=== PATIENT | female | born 1970 | race Caucasian/White ===

== ENCOUNTER 2017-07-31 12:00 | Outpatient (CLI) | payer MEDICAID ==
[~2017-07-31] VITALS: Ht 157.5 cm; Wt 113.4 kg
[2017-07-31] MEDS ORDERED: CARV3.122 PO (12:19)
[2017-07-31] MEDS ORDERED: FLUT15.88 NS (12:19)
[2017-07-31] MEDS ORDERED: GABA-488 PO (12:19)
[2017-07-31] MEDS ORDERED: PARO20TA5 PO (12:19)
[2017-07-31] MEDS ORDERED: IBUP-1780 PO (12:19)
[2017-07-31] MEDS ORDERED: PRAV20TA3 PO (12:19)
[2017-07-31] MEDS ORDERED: ASPI-983 PO (12:19)
[2017-07-31] MEDS ORDERED: TRAM50TA2 PO (12:19)
[2017-07-31] MEDS ORDERED: RT-ALBUINH IH (12:19)
[2017-07-31 12:20] VITALS: BP 147/87
== END 2017-07-31 12:20 | disposition home or self-care (01) ==
LOC: PREOP 12:00
PROVIDERS: ATTEND Orthopaedic Surgery
DX: Z01.818 Encounter for other preprocedural examination (principal); Z11.2 Encounter for screening for other bacterial diseases; S43.401A Unspecified sprain of right shoulder joint, initial encounter; X58.XXXA Exposure to other specified factors, initial encounter
CPT/HCPCS: 87081

== ENCOUNTER 2017-08-06 07:01 | Day surgery (SDC) | payer MEDICAID ==
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
[~2017-08-06] VITALS: Ht 157.5 cm; Wt 113.4 kg
[~2017-08-06 07:01] MED LIST: ASPI-983 PO; CARV3.122 PO; FLUT15.88 NS; GABA-488 PO; IBUP-1780 PO; PARO20TA5 PO; PRAV20TA3 PO; RT-ALBUINH IH; TRAM50TA2 PO
[2017-08-06 07:02] VITALS: BP 156/79
--- NOTE | 2017-08-06 07:31 | Progress Note-Pre Operative ---
Pre-Operative Progress Note H&P Reviewed The H&P was reviewed, patient examined and no changes noted. Date Seen by Provider: Aug 06, 2017 Time Seen by Provider: 07:21 Date H&P Reviewed: Aug 06, 2017 Time H&P Reviewed: 07:31 Pre-Operative Diagnosis: right shoulder SLAP tear and labral tear BEE GONZALEZ MD Aug 06, 2017 07:31
--- NOTE | 2017-08-06 07:32 | Progress Note-Post Operative ---
Post-Operative Progess Note Surgeon (s)/Fisher Line (s) Surgeon BEE GONZALEZ MD Fisher Line: Collin Abdalla Pre-Operative Diagnosis right shoulder SLAP tear and labral tear Post-Operative Diagnosis right shoulder SLAP tear and chondromalacia of the glenoid Procedure & Operative Findings Date of Procedure 08/06/17 Procedure Performed/Findings right shoulder arthroscopic biceps tenotomy and chondroplasty of the glenoid Anesthesia Type GETA Estimated Blood Loss Estimated blood loss (mL): minimal Specimens/Packing Specimens Removed none Packing: none BEE GONZALEZ MD Aug 06, 2017 07:32
--- OUTSIDE RECORDS SUMMARY | 2017-08-06 07:32 | XMS REPORT ---
Author NAHED Glynn [facility] eClinicalWorks Address Unknown Phone Unavailable Care Team Providers Care Cryolite Recovery Operator Name Role Phone NAHED CLEANING CP Unavailable Allergies No Known Allergies Problems Problem Type Condition Code Onset Dates Condition Status Problem Benign essential hypertension I10 Active Problem Obesity (BMI 30-39.9) E66.9 Active Problem Depression with anxiety F41.8 Active Problem Tobacco use Z72.0 Active Medications No Known Medications Results No Known Results Summary Purpose eClinicalWorks Submission
--- OUTSIDE RECORDS SUMMARY | 2017-08-06 07:32 | XMS REPORT ---
Author NAHED Glynn [facility] eClinicalWorks Address Unknown Phone Unavailable Care Team Providers Care Manager Of It Name Role Phone NAHED CLEANING CP Unavailable Allergies No Known Allergies Problems Problem Type Condition Code Onset Dates Condition Status Problem Benign essential hypertension I10 Active Problem Obesity (BMI 30-39.9) E66.9 Active Problem Depression with anxiety F41.8 Active Problem Tobacco use Z72.0 Active Medications Medication Code System Code Instructions Start Date End Date Status Dosage Pravastatin Sodium [facility] [address]-35 20 mg Orally Once a day 1 tablet Results No Known Results Summary Purpose eClinicalWorks Submission
--- OUTSIDE RECORDS SUMMARY | 2017-08-06 07:32 | XMS REPORT ---
Author NAHED Glynn eClinicalWorks Address Unknown Phone Unavailable Care Team Providers Care Plant Safety Engineer Name Role Phone NAHED CLEANING CP Unavailable Allergies, Adverse Reactions, Alerts Substance Reaction Event Type N.K.D.A. Info Not Available Non Drug Allergy Problems Problem Type Condition Code Onset Dates Condition Status Problem Benign essential hypertension I10 Active Problem Obesity (BMI 30-39.9) E66.9 Active Problem Depression with anxiety F41.8 Active Assessment Other chronic pain G89.29 Active Assessment Hip pain, right M25.551 Active Problem Tobacco use Z72.0 Active Assessment Lumbago with sciatica, right side M54.41 Active Medications Medication Code System Code Instructions Start Date End Date Status Dosage Albuterol Sulfate [facility] [address]-19 2.5 mg /3 mL (0.083 %) November 28, 2011 1 Solution for Nebulization by Inhalation route every 6 hours for cough and wheeze PRNfor wheezing or cough ProAir HFA [facility] [address]-40 108 (90 Base) MCG/ACT Inhalation every 4 hrs February 08, 2016 2 puffs as needed Methocarbamol [facility] 16784329571 750 MG 1 tablet once daily as needed for muscle spasm Orally Ibuprofen [facility] 35822107821 800 MG 1 tablet 2 times a day as needed for pain Orally Paroxetine HCl [facility] [address]-09 20 mg Orally Once a day 1 tablet in the morning Neurontin [facility] [address]-27 300 MG Orally bedtime for back pain February 08, 2016 1 capsule Lisinopril [facility] 59917205409 30 MG 1 tablet Once a day Orally Pravastatin Sodium [facility] [address]-36 20 mg Orally Once a day 1 tablet Procedures Procedure Coding System Code Date INJECT SACROILIAC JOINT CPT-4 29683 Apr 19, 2016 Office Visit, Est Pt., Level 3 CPT-4 97938 Apr 19, 2016 Vital Signs Date/Time: Apr 19, 2016 Cardiac Monitoring Heart Rate 90 bpm Weight 247.1 lbs Height 63.2 in BMI 43.49 Index Blood Pressure Diastolic 78 mmHg Blood Pressure Systolic 130 mmHg Results No Known Results Summary Purpose eClinicalWorks Submission
--- OUTSIDE RECORDS SUMMARY | 2017-08-06 07:32 | XMS REPORT ---
Author STACIE Leigh Organization eClinicalWorks Address Unknown Phone Unavailable Care Team Providers Care Streetcar Dispatcher Name Role Phone STACIE HAMM CP Unavailable Allergies No Known Allergies Problems Problem Type Condition Code Onset Dates Condition Status Problem Benign essential hypertension I10 Active Problem Obesity (BMI 30-39.9) E66.9 Active Problem Depression with anxiety F41.8 Active Problem Tobacco use Z72.0 Active Assessment Acute pain of right shoulder M25.511 Active Medications No Known Medications Procedures Procedure Coding System Code Date Office Visit, Est Pt., Level 3 CPT-4 09036 Apr 10, 2016 Vital Signs Date/Time: Apr 10, 2016 Cardiac Monitoring Heart Rate 102 bpm Weight 244.9 lbs Height 63.2 in BMI 43.10 Index Blood Pressure Diastolic 88 mmHg Blood Pressure Systolic 132 mmHg Results No Known Results Summary Purpose eClinicalWorks Submission
--- OUTSIDE RECORDS SUMMARY | 2017-08-06 07:32 | XMS REPORT ---
Author Author NAHED CLEANING [facility] Address [address] [place] [address] Care Team Providers Care Core Composer Feeder Name Role Phone NAHED CLEANING Unavailable PROBLEMS Type Condition ICD9-CM Code [id number] Code Onset Dates Condition Status SNOMED Code Problem Tobacco use Z72.0 Active 371185548 Problem Benign essential hypertension I10 Active 9076718 Problem Depression with anxiety F41.8 Active 794678289 Problem Obesity (BMI 30-39.9) E66.9 Active 275110397 ALLERGIES No Known Allergies SOCIAL HISTORY Never Assessed PLAN OF CARE Activity Details Follow Up MARCH Reason:BP/fasting labs VITAL SIGNS Height 63.2 in 2017-01-07 Weight 238.4 lbs 2017-01-07 Temperature 98.0 degrees Fahrenheit 2017-01-07 Heart Rate 96 bpm 2017-01-07 Respiratory Rate 16 2017-01-07 BMI 41.96 kg/m2 2017-01-07 Blood pressure systolic 122 mmHg 2017-01-07 Blood pressure diastolic 82 mmHg 2017-01-07 MEDICATIONS Medication Instructions Dosage Frequency Start Date End Date Duration Status Baby Aspirin Active Augmentin 875-125 MG Orally every 12 hrs 1 tablet 12h December,December 10 day(s) Active Paroxetine HCl 20 mg Orally Once a day 1 tablet in the morning 24h Active ProAir HFA 108 (90 Base) MCG/ACT Inhalation every 6 hrs 2 puffs as needed 6h Jan, Active Lisinopril 30 MG 1 tablet Once a day Orally Active Neurontin 300 MG Orally bedtime for back pain 1 capsule Jan, Active Flonase Active Carvedilol 3.125 MG Orally Once a day 24h Active Pravastatin Sodium 20 mg Orally Once a day 1 tablet 24h Active Fluticasone Propionate 50 MCG/ACT Nasally Once a day ( flonase seniment if possible) 1 spray in each nostril December, Active Diflucan 150 MG Orally Once a day 1 tablet 24h December, Active RESULTS No Results PROCEDURES Procedure Date Ordered Result Body Site SOLUMEDROL (UP TO 125 MG) January 07, 2017 THER/PROPH/DIAG INJ, SC/IM January 07, 2017 IMMUNIZATIONS Vaccine Route Administration Date Status SOLUMEDROL (UP TO 125 MG) IM Intramuscular January 07, 2017 Administered MEDICAL (GENERAL) HISTORY Type Description Date Medical History hypertension Medical History depression Medical History hyperlipidemia Medical History Low back pain- 1996 [employer] workmans comp Medical History Anxiety Medical History PFT 03/2016- Normal Medical History NM Stress test 11/2016- Normal, EF 62% Surgical History cholecystectomy Surgical History partial hysterectomy Surgical History tonsillectomy and adenoidectomy Hospitalization History Surgery(s)/Childbirth(s) only Hospitalization History Amrita LEON- Treated and kept overnight 2016
[2017-08-06] MEDS ORDERED: ceFAZolin 1,000 MG (ANCEF) VIAL ONE (07:33)
[2017-08-06] MEDS ORDERED: NS (IVPB) 50 ML ONE (07:33)
[2017-08-06] MEDS ORDERED: ceFAZolin 1 GM/NS 50 ML IVPB IV ONE ×2 (07:45)
[2017-08-06] MEDS ORDERED: HYDROcodone/APAP 7.5 MG/325 MG (LORTAB, LORCET PLUS) TABLET PO PRN (07:45)
[2017-08-06] MEDS ORDERED: CATHETER FLUSH 10 ML SYR IV PRN (07:45)
[2017-08-06] MEDS: LACTATED RINGERS 1,000 ML IV PRN ×2 (07:47→09:27)
[2017-08-06] MEDS ORDERED: morphine PF (DURAMORPH) 10 MG/10 ML AMP ONE (08:06)
[2017-08-06] MEDS ORDERED: fentaNYL INJECTION 100 MCG/2 ML AMP ONE (08:06)
[2017-08-06] MEDS ORDERED: LIDOCAINE PF 2% 5 ML (XYLOCAINE) VIAL ONE (08:06)
[2017-08-06] MEDS ORDERED: SEVOFLURANE (ULTANE) 15 ML INHAL SOLN ONE ×3 (08:06→09:17)
[2017-08-06] MEDS ORDERED: proPOfol 200 MG/20 ML (DIPRIVAN) VIAL IV ONE (08:06)
[2017-08-06] MEDS ORDERED: MIDAZOLAM 2 MG/2 ML (VERSED) VIAL ONE (08:07)
[2017-08-06] MEDS ORDERED: BUPIVACAINE 0.25% 30 ML (SENSORCAINE) VIAL ONE (08:23)
[2017-08-06] MEDS ORDERED: SUCCINYLCHOLINE INJ 100 MG/5 ML SYR ONE (09:17)
[2017-08-06] MEDS ORDERED: DEXAMETHASONE 10 MG/ML (DECADRON) 1 ML VIAL ONE (09:17)
[2017-08-06] MEDS ORDERED: ONDANSETRON 4 MG/2 ML (SDV) Z0FRAN ONE (09:17)
[2017-08-06] MEDS: morphine INJ 10 MG/ML 1ML (SYR OR VIAL) IVP PRN ×3 (09:42→09:58)
[2017-08-06] MEDS ORDERED: ONDANSETRON 4 MG/2 ML (SDV) Z0FRAN IVP PRN (09:45)
[2017-08-06 10:25] VITALS: BP 147/78
[2017-08-06 10:55] VITALS: BP 145/85
[2017-08-06] MEDS ORDERED: HYDR-3816 PO (11:23)
[2017-08-06 11:30] VITALS: BP 148/76
[2017-08-06 12:00] VITALS: BP 148/76
--- NOTE | 2017-08-06 13:40 | OPERATIVE REPORT ---
DATE OF SERVICE: 08/06/2017 PREOPERATIVE DIAGNOSES: 1. Right shoulder type 2 SLAP tear. 2. Right shoulder labral tear. POSTOPERATIVE DIAGNOSES: 1. Right shoulder type 2 SLAP tear. 2. Right shoulder chondromalacia of the glenoid. PROCEDURES: 1. Right shoulder arthroscopic biceps tenotomy. 2. Right shoulder arthroscopic chondroplasty of the glenoid. SURGEON: Gregory Gonzalez MD BAIL BONDING AGENT: Collin Abdalla, who assisted throughout the procedure and closed the incisions. ANESTHESIA: General endotracheal by Jennifer Luther CRNA. ESTIMATED BLOOD LOSS: Minimal. DRAINS: None. COMPLICATIONS: None. POSTOPERATIVE PLAN : Sling wear for comfort with progressive range of motion as symptoms allow. The patient was transported to the recovery room awake, in stable condition. STATEMENT OF MEDICAL NECESSITY: The patient is a 46-year-old right hand dominant female who injured her right shoulder 18 months ago. Since then she has had pain and weakness with overhead activities. An MRI revealed a SLAP tear with no rotator cuff pathology. She tried rest, activity modifications and anti-inflammatories without relief and due to functional impairment, the patient to proceed with surgical intervention. Examination under anesthesia revealed range of motion forward elevation of 170 degrees, external rotation of 85 degrees and internal rotation of 70 degrees. Arthroscopic findings demonstrated type 2 SLAP tear. In addition, there was grade III chondral flap at the 4 o'clock position on the anterior glenoid in an 8 x 8 area. The remainder of the labrum was intact with no evidence of a Bankart, ALPSA or HAGL lesion. DESCRIPTION OF PROCEDURE: After risks and benefits of the procedure were discussed and questions were answered, informed consent signed and placed in chart. The operative site was confirmed in the preoperative holding area, initialed by the surgeon. The patient then transported to the operating room and after adequate levels of general endotracheal anesthetic were obtained, timeout was called to confirm the operative site. Examination under anesthesia was performed with the above findings noted. The right shoulder and upper extremity prepped and draped in the usual sterile fashion. Shoulder injected with 20 mL of fluid. A standard posterior portal was placed under direct visualization, anterior portal was created in the interval between the biceps, subscap, bursa and glenoid. The biceps anchor was released and the stump was debrided with a shaver. The anterior glenoid chondral flap was debrided with the shaver back to a stable edge. The shoulder joint was copiously irrigated. Port sites were closed with 4-0 nylon in simple interrupted fashion. Shoulder was injected with Duramorph. The portal sites were infiltrated with plain Marcaine. A soft dressing and sling were applied. The patient was transferred to the recovery room awake and in stable condition. Job ID: [id number] DocumentID: [id number] Dictated Date: 08/06/2017 09:23:08 Ux Research Associate Date: 08/06/2017 13:39:11 Dictated By: GREGORY GONZALEZ MD
== END 2017-08-06 12:00 | disposition home or self-care (01) ==
LOC: SDC 07:01
PROVIDERS: ATTEND Orthopaedic Surgery
DX: S43.432A Superior glenoid labrum lesion of left shoulder, initial encounter (principal); M94.211 Chondromalacia, right shoulder; W19.XXXA Unspecified fall, initial encounter; I10 Essential (primary) hypertension; E78.5 Hyperlipidemia, unspecified; J45.909 Unspecified asthma, uncomplicated; F41.9 Anxiety disorder, unspecified; F32.9 Major depressive disorder, single episode, unspecified; M54.9 Dorsalgia, unspecified; F17.210 Nicotine dependence, cigarettes, uncomplicated; Z79.82 Long term (current) use of aspirin; Z79.899 Other long term (current) drug therapy

== ENCOUNTER 2018-03-05 11:51 | Outpatient (CLI) | payer MEDICAID ==
[~2018-03-05] VITALS: Ht 157.5 cm; Wt 113.9 kg
[~2018-03-05 11:51] MED LIST changes: +HYDR-34 PO
[2018-03-05 12:05] VITALS: BP 157/94
== END 2018-03-05 12:14 | disposition home or self-care (01) ==
LOC: PREOP 11:51
PROVIDERS: ATTEND Orthopaedic Surgery
DX: Z01.818 Encounter for other preprocedural examination (principal)
CPT/HCPCS: 87081

== ENCOUNTER 2018-03-11 08:20 | Day surgery (SDC) | payer MEDICAID ==
--- NOTE | 2018-02-24 18:03 | HISTORY AND PHYSICAL ---
DATE OF SERVICE: 03/11/2018 ADMISSION HISTORY AND PHYSICAL FOR OUTPATIENT SURGERY DATE OF ADMISSION: 03/11/2018. HISTORY: The patient is a 47-year-old right hand dominant female, who has had several year history of right shoulder pain. She underwent a biceps tenotomy with partial relief of symptoms. She has had continued pain. She underwent acromioclavicular injection, which provided temporary relief of her symptoms due to functional impairment and failure to improve with conservative measures. The patient has elected to proceed with surgical intervention. REVIEW OF SYSTEMS: No chest pain. No shortness of breath. No dysuria. PAST MEDICAL HISTORY: Anxiety disorder, back pain, depression, hyperlipidemia, hypertension. PAST SURGICAL HISTORY: Adenoidectomy, cholecystectomy, hysterectomy, tonsillectomy, right shoulder. FAMILY HISTORY: Significant for Parkinson's, hypertension. PRIMARY CARE PROVIDER: [facility]. MEDICATIONS: 1. Neurontin. 2. ProAir. 3. Fluticasone. 4. Pravastatin. 5. Carvedilol. 6. Paroxetine. 7. Aspirin. 8. Tramadol. 9. Ibuprofen. 10. Hydrocodone. ALLERGIES: No known drug allergies. SOCIAL HISTORY: The patient is a current every day smoker. Denies alcohol use. PHYSICAL EXAMINATION: GENERAL: The patient is well-developed, well-nourished, in no acute distress. HEENT: Normocephalic and atraumatic. Pupils are equal, round and reactive to light. Oropharynx is clear. NECK: Supple. No lymphadenopathy. LUNGS: Clear to auscultation bilaterally. HEART: Regular rate and rhythm. ABDOMEN: Soft, nontender, nondistended. EXTREMITIES EXAM: The right shoulder demonstrates active forward elevation of 170 degrees, external rotation of 70 degrees, internal rotation to her midlumbar spine. She is tender at her acromioclavicular joint and has pain with cross body abduction. She also has positive Neer's and positive Hawkin sign. No gross weakness to abduction of external organs or internal rotation. IMPRESSION: Right acromioclavicular posttraumatic arthrosis. PLAN: Right shoulder arthroscopic distal clavicle excision. The risks, benefits, options, ramifications and recovery have been discussed at length with the patient. She understands and wishes to proceed. Job ID: [id number] DocumentID: [id number] Dictated Date: 02/24/2018 17:32:23 Drafter Geological Date: 02/24/2018 18:02:37 Dictated By: BEE GONZALEZ MD
[~2018-03-11] VITALS: Ht 157.5 cm; Wt 113.9 kg
[2018-03-11 08:18] VITALS: BP 168/82
[2018-03-11] MEDS ORDERED: LACTATED RINGERS 1,000 ML IV PRN (08:21)
[2018-03-11] MEDS ORDERED: ceFAZolin INJECTION 1,000 MG in NS (IVPB) 50 ML IV ONE (08:30)
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
--- OUTSIDE RECORDS SUMMARY | 2018-03-11 08:31 | XMS REPORT ---
Author Author NAHED CLEANING [facility] CID Address [address] [place] [address] Care Team Providers Care Mobile Home Set Up Person Name Role Phone NAHED CLEANING Unavailable PROBLEMS Type Condition ICD9-CM Code [id number] Code Onset Dates Condition Status SNOMED Code Problem Anxiety F41.9 Active 34367526 Problem Benign essential hypertension I10 Active 0516173 Problem Tobacco use Z72.0 Active 632132033 Problem Depression with anxiety F41.8 Active 265189907 Problem Obesity (BMI 30-39.9) E66.9 Active 160516548 ALLERGIES No Information ENCOUNTERS Encounter Location Date Diagnosis [facility] [address] [id number], [place] [id number] Sep, [facility] [address] [id number], [place] [id number] Sep, Anxiety F41.[address] [id number], [place] [id number] Sep, Anxiety F41.9 ; Benign essential hypertension I10 and Tobacco use Z72.0 [facility] [address] [id number], [place] [address] Jul, Benign essential hypertension I10 ; Right anterior shoulder pain M25.511 ; BMI 40.0-44.9, adult Z68.41 and Depression with anxiety F41.8 [facility] [address] [facility] [id number][place] [address] Jun, Right anterior shoulder pain M25.[address] [facility] [address] [id number], [place] [id number] Jun, [facility] [facility] [address] [id number], [place] [id number] Jun, Depression with anxiety F41.8 [facility] [address] [id number], [place] [id number] December, Bronchitis J40 ; Acute mucoid otitis media of right ear H65.111 ; Low back pain M54.5 and Acute non-recurrent maxillary sinusitis J01.00 [facility] [address] [id number], [place] [id number] Apr, Lumbago with sciatica, right side M54.41 ; Other chronic pain G89.29 and Hip pain, right M25.551 [facility] [address] [id number], [place] [id number] Apr, Acute pain of right shoulder M25.511 [facility] [address] [id number], [place] [id number] Apr, [facility] [address] [id number], [place] [id number] Mar, [facility] [address] [id number], [place] [id number] Mar, [facility] [address] [id number], [place] [address] Mar, Tobacco use Z72.0 [facility] [address] [id number], [place] [id number] Mar, Depression with anxiety F41.8 ; Benign essential hypertension I10 ; Obesity (BMI 30-39.9) E66.9 and Shortness of breath R06.02 [facility] [address] [id number] [place] [id number] Jan, Bilateral low back pain without sciatica, unspecified chronicity M54.5 [facility] [address] [id number], [place] [id number] Jan, Bilateral low back pain without sciatica, unspecified chronicity M54.5 [facility] [address] [id number], [place] [id number] Jan, Bilateral low back pain without sciatica, unspecified chronicity M54.5 ; Depression with anxiety F41.8 ; Benign essential hypertension I10 ; Obesity (BMI 30-39.9) E66.9 ; Shortness of breath R06.02 and Tobacco use Z72.[address] [id number] [place] [id number] December, Back pain at L4-L5 level M54.5 and Abscess L02.91 [facility] [address]00565100[place], [place] [phone] Nov, [facility] [id number] [place] [phone] Nov, [facility] [id number] [place] [phone] Oct, [facility] [id number] [place] [phone] Jun, [facility] [address]00565100[place], [place] [phone] Jun, [facility] [id number] [place] [phone] Jun, IMMUNIZATIONS No Known Immunizations SOCIAL HISTORY Never Assessed REASON FOR VISIT Blood pressure check bferrisma PLAN OF CARE VITAL SIGNS Height 63.2 in 2017-06-11 Blood pressure systolic 148 mmHg 2017-06-11 Blood pressure diastolic 82 mmHg 2017-06-11 MEDICATIONS Unknown Medications RESULTS No Results PROCEDURES No Known procedures INSTRUCTIONS MEDICATIONS ADMINISTERED No Known Medications MEDICAL (GENERAL) HISTORY Type Description Date Medical History hypertension Medical History depression Medical History hyperlipidemia Medical 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
--- OUTSIDE RECORDS SUMMARY | 2018-03-11 08:31 | XMS REPORT ---
Author Author NAHED CLEANING [facility] CID Address [address] [place] [address] Care Team Providers Care Analytical Data Scientist Name Role Phone NAHED CLEANING Unavailable PROBLEMS Type Condition ICD9-CM Code PPH79-QA Code Onset Dates Condition Status SNOMED Code Problem Anxiety F41.9 Active 27757443 Problem Benign essential hypertension I10 Active 3030253 Problem Tobacco use Z72.0 Active 406620656 Problem Depression with anxiety F41.8 Active 320535759 Problem Obesity (BMI 30-39.9) E66.9 Active 452037530 ALLERGIES No Known Allergies ENCOUNTERS Encounter Location Date Diagnosis [facility] [address] [id number], [place] [id number] Sep, [facility] [address] [address] [id number], [place] [id number] Sep, Anxiety F41.[address] [id number], [place] [address] Sep, Anxiety F41.9 ; Benign essential hypertension I10 and Tobacco use Z72.[address] [id number], [place] [id number] Jul, Benign essential hypertension I10 ; Right anterior shoulder pain M25.511 ; BMI 40.0-44.9, adult Z68.41 and Depression with anxiety F41.8 [facility] [address] [facility] [id number][place] [address]166[address] Jun, Right anterior shoulder pain M25.511 [facility] [address] [id number], [place] [id number] Jun, [facility] [address] [id number], [place] [id number] Jun, Depression with anxiety F41.8 [facility] [address] [id number], [place] [id number] December, Bronchitis J40 ; Acute mucoid otitis media of right ear H65.111 ; Low back pain M54.5 and Acute non-recurrent maxillary sinusitis J01.00 [facility] [address] [id number], [place] [address] Apr, Lumbago with sciatica, right side M54.41 ; Other chronic pain G89.29 and Hip pain, right M25.551 [facility] [address] [id number], [place] [id number] Apr, Acute pain of right shoulder M25.511 [facility] [address] [id number], [place] [id number] Apr, [facility] [address] [id number], [place] [id number] Mar, [facility] [address] [id number], [place] [id number] Mar, [facility] [address] [id number], [place] [id number] Mar, Tobacco use Z72.0 [facility] [address] [id number], [place] [id number] Mar, Depression with anxiety F41.8 ; Benign essential hypertension I10 ; Obesity (BMI 30-39.9) E66.9 and Shortness of breath R06.02 [facility] [address] [id number], [place] [id number] Jan, Bilateral low back pain without sciatica, unspecified chronicity M54.5 [facility] [address] [id number], [place] [address] Jan, Bilateral low back pain without sciatica, unspecified chronicity M54.5 [facility] [address] [id number], [place] [id number] Jan, Bilateral low back pain without sciatica, unspecified chronicity M54.5 ; Depression with anxiety F41.8 ; Benign essential hypertension I10 ; Obesity (BMI 30-39.9) E66.9 ; Shortness of breath R06.02 and Tobacco use Z72.[address] [id number], [place] [id number] December, Back pain at L4-L5 level M54.5 and Abscess L02.91 [facility] [address]00565100[place], [place] [phone] Nov, [facility] [id number] [place] [phone] Nov, [facility] [id number] [place] [phone] Oct, [facility] [id number] [place] [phone] Jun, [facility] [address]00565100[place], [place] [phone] Jun, [facility] [id number] [place] [phone] Jun, IMMUNIZATIONS No Known Immunizations SOCIAL HISTORY Never Assessed REASON FOR VISIT Anxiety follow up. 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 PLAN OF CARE Activity Details Follow Up 1 Week Reason:fasting labs VITAL SIGNS Height 63.2 in 2017-09-08 Weight 243.8 lbs 2017-09-08 Temperature 98.6 degrees Fahrenheit 2017-09-08 Heart Rate 67 bpm 2017-09-08 Respiratory Rate 18 2017-09-08 BMI 42.91 kg/m2 2017-09-08 Blood pressure systolic 134 mmHg 2017-09-08 Blood pressure diastolic 82 mmHg 2017-09-08 MEDICATIONS Medication Instructions Dosage Frequency Start Date End Date Duration Status ProAir HFA 108 (90 Base) MCG/ACT Inhalation every 6 hrs 2 puffs as needed 6h Jan, Active Neurontin 300 MG Orally bedtime for back pain 1 capsule Jan, Active Paroxetine HCl 40 MG Orally Once a day 1 tablet in the morning 24h Active Fluticasone Propionate 50 MCG/ACT Nasally Once a day ( flonase seniment if possible) 1 spray in each nostril December, Active HydrOXYzine HCl 25 MG Orally every 8 hrs 1 tablet as needed 8h Sep, Active Pravastatin Sodium 20 mg Orally Once a day 1 tablet 24h Active BusPIRone HCl 10 mg Orally 3 times a day 1 tablet 8h Jul, Not-Taking Carvedilol 3.125 MG Orally twice a day 1 tablet 12h Active Lisinopril 30 MG Orally Once a day 1 tablet 24h Active RESULTS No Results PROCEDURES No Known procedures INSTRUCTIONS MEDICATIONS ADMINISTERED No Known Medications MEDICAL (GENERAL) HISTORY Type Description Date Medical History hypertension Medical History depression Medical History hyperlipidemia 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
--- OUTSIDE RECORDS SUMMARY | 2018-03-11 08:32 | XMS REPORT ---
Author Author NAHED CLEANING [facility] CID Address [address] [place] [address] Care Team Providers Care Motor Vehicle Technician Name Role Phone NAHED CLEANING Unavailable PROBLEMS Type Condition ICD9-CM Code [id number] Code Onset Dates Condition Status SNOMED Code Problem Anxiety F41.9 Active 41932552 Problem Benign essential hypertension I10 Active 0067586 Problem Tobacco use Z72.0 Active 763799527 Problem Depression with anxiety F41.8 Active 838028633 Problem Obesity (BMI 30-39.9) E66.9 Active 025639157 ALLERGIES No Known Allergies ENCOUNTERS Encounter Location Date Diagnosis [facility] [address] [id number], [place] [id number] Sep, [facility] [address] [id number], [place] [id number] Sep, Anxiety F41.[address] [id number], [place] [id number] Sep, Anxiety F41.9 ; Benign essential hypertension I10 and Tobacco use Z72.[address] [id number], [place] [address] Jul, Benign essential hypertension I10 ; Right anterior shoulder pain M25.511 ; BMI 40.0-44.9, adult Z68.41 and Depression with anxiety F41.8 [facility] [address] [facility] [id number] [place] [phone] Jun, Right anterior shoulder pain M25.511 [facility] [address] [id number], [place] [id number] Jun, [facility] [address] [id number], [place] [id number] Jun, Depression with anxiety F41.8 [facility] [address] [id number], [place] [id number] December, Bronchitis J40 ; Acute mucoid otitis media of right ear H65.111 ; Low back pain M54.5 and Acute non-recurrent maxillary sinusitis J01.00 [facility] [address] [id number], [place] [address] Apr, Lumbago with sciatica, right side M54.41 ; Other chronic pain G89.29 and Hip pain, right M25.551 [facility] [address] [id number], [place] [id number] Apr, Acute pain of right shoulder M25.511 [facility] [address] [id number], [place] [id number] Apr, [facility] C[facility] [address] [id number], [place] [id number] Mar, [facility] [address] [id number], [place] [id number] Mar, [facility] C[facility] [address] [id number], [place] [address]34[address] Mar, Tobacco use Z72.0 [facility] C[facility] [address] [id number], [place] [id number] Mar, Depression with anxiety F41.8 ; Benign essential hypertension I10 ; Obesity (BMI 30-39.9) E66.9 and Shortness of breath R06.02 [facility] [address] [id number], [place] [id number] Jan, Bilateral low back pain without sciatica, unspecified chronicity M54.5 [facility] [address] [id number], [place] [id number] Jan, Bilateral low back pain without sciatica, unspecified chronicity M54.5 [facility] [address] [id number], [place] [id number] Jan, Bilateral low back pain without sciatica, unspecified chronicity M54.5 ; Depression with anxiety F41.8 ; Benign essential hypertension I10 ; Obesity (BMI 30-39.9) E66.9 ; Shortness of breath R06.02 and Tobacco use Z72.[address] [id number] [place] [id number] December, Back pain at L4-L5 level M54.5 and Abscess L02.91 [facility] [address]65100[place] [address] Nov, [facility] [id number] [place] [address]- [phone] Nov, [facility] [address] [id number] [address]- [address] Oct, [facility] [address] [place] [phone]- [phone] Jun, [facility] [address]65100[place] [address]- [address] Jun, [facility] [address] [place] [address]- [phone] Jun, IMMUNIZATIONS No Known Immunizations SOCIAL HISTORY Never Assessed REASON FOR VISIT Blood Pressure- Jose Alejandro BRONSON PLAN OF CARE Activity Details Follow Up March Reason:BP/fasting labs VITAL SIGNS Height 63.2 in 2017-07-04 Weight 247.1 lbs 2017-07-04 Temperature 97.5 degrees Fahrenheit 2017-07-04 Heart Rate 71 bpm 2017-07-04 Respiratory Rate 20 2017-07-04 BMI 43.49 kg/m2 2017-07-04 Blood pressure systolic 126 mmHg 2017-07-04 Blood pressure diastolic 70 mmHg 2017-07-04 MEDICATIONS Medication Instructions Dosage Frequency Start Date End Date Duration Status Lisinopril 30 MG Orally Once a day 1 tablet 24h Active Carvedilol 3.125 MG Orally twice a day 1 tablet 12h Active Fluticasone Propionate 50 MCG/ACT Nasally Once a day ( flonase seniment if possible) 1 spray in each nostril December, Active BusPIRone HCl 10 mg Orally 3 times a day 1 tablet 8h Jul, Active Pravastatin Sodium 20 mg Orally Once a day 1 tablet 24h Active Paroxetine HCl 40 MG Orally Once a day 1 tablet in the morning 24h Active ProAir HFA 108 (90 Base) MCG/ACT Inhalation every 6 hrs 2 puffs as needed 6h Jan, Active PredniSONE 20 mg Orally Once a day 2 tabs x 5 days 24h Jun,Jul 05 days Active Tramadol HCl 50 mg Orally TID PRN 1 tablet as needed Jun,Jul 10 days Active Neurontin 300 MG Orally bedtime for back pain 1 capsule Jan, Active Aspirin Childrens 81 MG Orally Once a day 1 tablet 24h Jun,Jul 30 day(s) Active Ibuprofen 800 MG Orally Three times a day 1 tablet with food or milk as needed 8h Jun, Jul, 10 days Active RESULTS No Results PROCEDURES No Known procedures INSTRUCTIONS MEDICATIONS ADMINISTERED No Known Medications MEDICAL (GENERAL) HISTORY Type Description Date Medical History hypertension Medical History depression Medical History hyperlipidemia Medical History Low back pain- 1996 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
[2018-03-11] MEDS ORDERED: ONDANSETRON 4 MG/2 ML (SDV) Z0FRAN ONE (08:57)
[2018-03-11] MEDS ORDERED: ROCURONIUM 10 MG/ML 5 ML SYRINGE IV ONE (08:57)
[2018-03-11] MEDS ORDERED: proPOfol 200 MG/20 ML (DIPRIVAN) VIAL IV ONE (08:57)
[2018-03-11] MEDS ORDERED: LIDOCAINE PF 2% 5 ML (XYLOCAINE) VIAL ONE (08:57)
[2018-03-11] MEDS ORDERED: fentaNYL INJECTION 100 MCG/2 ML AMP ONE (08:58)
[2018-03-11] MEDS ORDERED: MIDAZOLAM 2 MG/2 ML (VERSED) VIAL ONE (08:58)
[2018-03-11] MEDS ORDERED: BUPIVACAINE 0.25% 30 ML (SENSORCAINE) VIAL ONE (09:12)
[2018-03-11] MEDS ORDERED: morphine PF (DURAMORPH) 10 MG/10 ML AMP ONE (09:12)
[2018-03-11] MEDS ORDERED: LIDOCAINE 1% INJ 20 ML 20 ML VIAL ONE (09:16)
[2018-03-11] MEDS ORDERED: HYDROcodone/APAP 7.5 MG/325 MG (LORTAB, LORCET PLUS) TABLET PO PRN (09:30)
--- NOTE | 2018-03-11 09:34 | Progress Note-Pre Operative ---
Pre-Operative Progress Note H&P Reviewed The H&P was reviewed, patient examined and no changes noted. Date Seen by Provider: Mar 11, 2018 Time Seen by Provider: 09:31 Date H&P Reviewed: Mar 11, 2018 Time H&P Reviewed: 09:32 Pre-Operative Diagnosis: right acromioclavicular sprain BEE GONZALEZ MD Mar 11, 2018 09:34
--- NOTE | 2018-03-11 09:35 | Progress Note-Post Operative ---
Post-Operative Progess Note Surgeon (s)/Missile Facilities Repairer (s) Surgeon BEE GONZALEZ MD Missile Facilities Repairer: Collin Abdalla Pre-Operative Diagnosis right acromioclavicular sprain Post-Operative Diagnosis right acromioclavicular sprain, partial thickness rotator cuff tear and impingement Procedure & Operative Findings Date of Procedure 03/11/18 Procedure Performed/Findings right shoulder arthroscopic distal clavicle excision, acromioplasty and rotator cuff debridement Anesthesia Type GETA Estimated Blood Loss Estimated blood loss (mL): minimal Specimens/Packing Specimens Removed none Packing: none BEE GONZALEZ MD Mar 11, 2018 09:35
[2018-03-11] MEDS ORDERED: PHENYLEPHRINE 100 MCG/ML 10 ML (ANESTHESIA) SYR ONE (10:19)
[2018-03-11] MEDS ORDERED: morphine INJ 10 MG/ML 1ML (SYR OR VIAL) ONE (11:13)
[2018-03-11] MEDS ORDERED: ONDANSETRON 4 MG/2 ML (SDV) Z0FRAN IVP PRN (11:15)
[2018-03-11] MEDS ORDERED: MEPERIDINE (DEMEROL) INJ 50 MG/ML IVP PRN (11:15)
[2018-03-11] MEDS ORDERED: HYDROmorphone 1 MG/ML (DILAUDID) 1 ML SYRINGE IV PRN (11:15)
[2018-03-11] MEDS: morphine INJ 10 MG/ML 1ML (SYR OR VIAL) IVP PRN ×3 (11:16→11:28)
[2018-03-11 12:00] VITALS: BP 142/72
[2018-03-11 12:30] VITALS: BP 136/79
[2018-03-11] MEDS ORDERED: OXYC-471 PO (12:36)
[2018-03-11 13:15] VITALS: BP 129/71
[2018-03-11 13:50] VITALS: BP 129/71
--- NOTE | 2018-03-11 14:04 | OPERATIVE REPORT ---
DATE OF SERVICE: 03/11/2018 PREOPERATIVE DIAGNOSIS: Right shoulder acromioclavicular joint sprain. POSTOPERATIVE DIAGNOSES: 1. Right shoulder acromioclavicular joint sprain. 2. Right shoulder impingement. 3. Right shoulder partial thickness rotator cuff tear. PROCEDURES: 1. Right shoulder arthroscopic rotator cuff debridement. 2. Right shoulder arthroscopic acromioplasty. 3. Right shoulder arthroscopic distal clavicle excision. SURGEON: Gregory Reyna MD. DEMOLITION SPECIALIST: BERTA Hunter, who assisted throughout the procedure and closed the incisions. ANESTHESIA: General endotracheal by Harish Mosley CRNA. TOURNIQUET TIME: Not applicable. ESTIMATED BLOOD LOSS: Minimal. DRAINS: None. COMPLICATIONS: None. POSTOPERATIVE PLAN: Early range of motion with progressive motion as tolerated. The patient was transferred to the recovery room awake and stable condition. STATEMENT OF MEDICAL NECESSITY: The patient is a 47-year-old female with complaints of right shoulder pain, worse with overhead activities. She was tender at acromioclavicular joint and pain with cross body adduction. She has tried rest, activity modifications, and anti-inflammatories without relief. She had undergone an injection with temporary relief, but due to functional impairment and failure to improve with conservative measures, the patient elected to proceed with surgical intervention. Examination under anesthesia revealed forward elevation of 170 degrees, external rotation of 85 degrees, internal rotation 70 degrees. Arthroscopic findings demonstrated approximately 40% undersurface tearing of the supraspinatus in a 1 x 1 cm area. No bursal-sided rotator cuff tearing was noted. The biceps anchor was absent. No other significant labral pathology was noted. No humeral head pathology was noted. There was a grade II-III chondral loss superiorly at the 12 o'clock position on the glenoid, which was then changed compared to previous arthroscopy, subacromial space demonstrated dense bursitis with prominence of the distal clavicle and downsloping anterolateral acromion. DESCRIPTION OF PROCEDURE: After risks and benefits of procedure were discussed and questions were answered, an informed consent was signed and placed on chart. The operative site was confirmed in the preoperative holding area initialed by the surgeon. The patient was then transferred to the operating room and after adequate levels of general endotracheal anesthetic were obtained, a timeout was called confirming the operative site. Examination under anesthesia was performed with above findings noted. The right shoulder and upper extremity were prepped and draped in the usual sterile fashion. The shoulder joint was injected with 20 mL of fluid. A standard posterior portal was placed. Diagnostic arthroscopy was carried out with the above findings noted. The rotator cuff was carefully probed with a spinal needle and partial thickness tearing was noted. The scope was then redirected in the subacromial space. A lateral portal was created. A bursectomy was performed and the acromion was planned to a flat type 1 acromion. The rotator cuff was closely inspected with no bursal-sided pathology noted. An anterior portal was created and the distal clavicle was excised from posterior to anterior and from medial to lateral resecting approximately 8 mm of the distal aspect. The scope was then redirected anteriorly to ensure that adequate resection had been performed, the subacromial space was copiously irrigated. Portal sites closed with 4-0 nylon in simple interrupted fashion. Shoulder was injected with Duramorph. Port sites were infiltrated with plain Marcaine. Soft dressing was applied and the patient transferred to recovery room awake and stable condition. Job ID: [id number] DocumentID: [id number] Dictated Date: 03/11/2018 11:12:13 Accounts Payable Manager Date: 03/11/2018 14:03:42 Dictated By: GREGORY REYNA MD
--- NOTE | 2018-03-11 15:16 | Anesthesia-General Post-Op ---
General Patient Condition Mental Status/LOC: Same as Preop Cardiovascular: Satisfactory Nausea/Vomiting: Absent Respiratory: Satisfactory Pain: Controlled Complications: Absent Post Op Complications Complications None Follow Up Care/Instructions Patient Instructions None needed. Anesthesia/Patient Condition Patient Condition Patient was seen after the procedure and was doing well, no complaints, stable vital signs, no apparent adverse anesthesia problems. NIHARIKA DEE DO Mar 11, 2018 15:16
== END 2018-03-11 13:50 | disposition home or self-care (01) ==
LOC: SDC 08:20
PROVIDERS: ATTEND Orthopaedic Surgery
DX: M19.111 Post-traumatic osteoarthritis, right shoulder (principal); M25.811 Other specified joint disorders, right shoulder; M75.111 Incomplete rotator cuff tear or rupture of right shoulder, not specified as traumatic; S43.51XD Sprain of right acromioclavicular joint, subsequent encounter; I10 Essential (primary) hypertension; J45.909 Unspecified asthma, uncomplicated; F17.210 Nicotine dependence, cigarettes, uncomplicated; Z79.82 Long term (current) use of aspirin; Z79.899 Other long term (current) drug therapy

== ENCOUNTER 2018-05-27 11:02 | Outpatient (RCR) | payer MEDICAID ==
[~2018-05-27 11:02] MED LIST changes: +OXYC-471 PO
== END 2018-06-10 | disposition home or self-care (01) ==
PROVIDERS: ATTEND Orthopaedic Surgery
DX: S43.51XD Sprain of right acromioclavicular joint, subsequent encounter (principal)